=== PATIENT | female | born 1980 | race Caucasian/White ===

== ENCOUNTER 2020-01-07 15:41 | Emergency (ER) | payer OTHER ==
[~2020-01-07] VITALS: Ht 157.5 cm; Wt 104.3 kg
== END 2020-01-07 21:59 | disposition home or self-care (01) ==
LOC: ER 15:41
DX: M25.561 Pain in right knee (principal)

== ENCOUNTER 2020-11-06 12:16 | Emergency (ER) | payer OTHER ==
[~2020-11-06] VITALS: Ht 157.5 cm; Wt 108.4 kg
[2020-11-06] MEDS ORDERED: ATIVAN0.5 M1 (12:49)
[2020-11-06] MEDS ORDERED: PAXIL20 MG (12:49)
== END 2020-11-06 16:18 | disposition left against medical advice (07) ==
LOC: ER 12:16
DX: B34.9 Viral infection, unspecified (principal); G44.209 Tension-type headache, unspecified, not intractable; Z20.828 Contact with and (suspected) exposure to other viral communicable diseases

== ENCOUNTER 2020-11-19 19:33 | Emergency (ER) | payer OTHER ==
[~2020-11-19] VITALS: Ht 157.5 cm; Wt 131.1 kg
[~2020-11-19 19:33] MED LIST: ATIVAN0.5 M1; PAXIL20 MG
[2020-11-19] MEDS ORDERED: BUDESONIDE0.5 MG/2 M (19:43)
[2020-11-19] MEDS ORDERED: ALBUTEROL2.5 MG/3 M IH (19:44)
[2020-11-19] MEDS ORDERED: PROAIR HFA8.5 GM IH (20:00)
== END 2020-11-19 20:22 | disposition home or self-care (01) ==
LOC: ER 19:33
DX: J45.909 Unspecified asthma, uncomplicated (principal); U07.1 COVID-19

== ENCOUNTER 2020-11-25 17:22 | Emergency (ER) | payer OTHER ==
[~2020-11-25] VITALS: Ht 157.5 cm; Wt 131.1 kg
[~2020-11-25 17:22] MED LIST changes: +ALBUTEROL2.5 MG/3 M IH; +BUDESONIDE0.5 MG/2 M; +PROAIR HFA8.5 GM IH
== END 2020-11-25 21:50 | disposition home or self-care (01) ==
LOC: ER 17:22
DX: R42 Dizziness and giddiness (principal)

== ENCOUNTER → 2020-12-02 | Outpatient (CLI) | payer OTHER | END | disposition home or self-care (01) | LOC: MRI 13:15 | DX: G93.89 Other specified disorders of brain (principal); R42 Dizziness and giddiness | CPT/HCPCS: 70551 ==

== ENCOUNTER 2021-02-04 07:36 | Outpatient (CLI) | payer OTHER | END 2021-02-04 07:42 | disposition home or self-care (01) | LOC: MAMO-SONO 07:36 | DX: Z12.31 Encounter for screening mammogram for malignant neoplasm of breast (principal); N64.4 Mastodynia ==

== ENCOUNTER 2021-04-09 15:24 | Emergency (ER) | payer OTHER ==
[~2021-04-09] VITALS: Ht 157.5 cm; Wt 11.8 kg
[2021-04-09] MEDS ORDERED: TRAMADOL HCL100 M1 (15:42)
[2021-04-09] MEDS ORDERED: INTESTINEX680 M1 PO (18:46)
== END 2021-04-09 19:10 | disposition home or self-care (01) ==
LOC: ER 15:24
DX: R19.7 Diarrhea, unspecified (principal); Z11.52 Encounter for screening for COVID-19

== ENCOUNTER 2021-05-14 19:28 | Emergency (ER) | payer OTHER ==
[~2021-05-14] VITALS: Ht 160 cm; Wt 125.2 kg
[~2021-05-14 19:28] MED LIST changes: +INTESTINEX680 M1 PO; +TRAMADOL HCL100 M1
== END 2021-05-14 22:25 | disposition home or self-care (01) ==
LOC: ER 19:28
DX: M54.5 Low back pain (principal)

== ENCOUNTER → 2021-06-22 11:45 | Outpatient (CLI) | payer OTHER | END | disposition home or self-care (01) | LOC: RAD 11:45 | PROVIDERS: ATTEND General Practice | DX: M77.32 Calcaneal spur, left foot (principal); M77.31 Calcaneal spur, right foot; M79.671 Pain in right foot ==

== ENCOUNTER 2021-09-07 21:19 | Emergency (ER) | payer OTHER ==
[~2021-09-07] VITALS: Ht 160 cm; Wt 102.1 kg
[2021-09-08] MEDS ORDERED: ZYRTEC10 MG PO (01:25)
[2021-09-08] MEDS ORDERED: AZITHROMYCIN500 MG PO (01:25)
[2021-09-08] MEDS ORDERED: ACETAMINOPHEN650 M2 PO (01:25)
[2021-09-08] MEDS ORDERED: MUCINEX DM ER1 EAC1 PO (01:25)
[2021-09-08] MEDS ORDERED: LEVALBUTER1.25 MG/3 IH (01:25)
== END 2021-09-08 01:52 | disposition home or self-care (01) ==
LOC: ER 21:19
DX: J40 Bronchitis, not specified as acute or chronic (principal)

== ENCOUNTER 2021-09-15 17:08 | Emergency (ER) | payer OTHER ==
[~2021-09-15] VITALS: Ht 157.5 cm; Wt 113.4 kg
[~2021-09-15 17:08] MED LIST changes: +ACETAMINOPHEN650 M2 PO; +AZITHROMYCIN500 MG PO; +LEVALBUTER1.25 MG/3 IH; +MUCINEX DM ER1 EAC1 PO; +ZYRTEC10 MG PO
[2021-09-15] MEDS ORDERED: LEVOFLOXACIN500 MG PO (22:02)
[2021-09-15] MEDS ORDERED: ALBUTEROL0.63 MG/3 IH (22:02)
[2021-09-15] MEDS ORDERED: BENZONATATE200 M1 PO (22:02)
== END 2021-09-15 22:14 | disposition home or self-care (01) ==
LOC: ER 17:08
DX: J20.9 Acute bronchitis, unspecified (principal); J45.998 Other asthma; Z03.818 Encounter for observation for suspected exposure to other biological agents ruled out; E16.1 Other hypoglycemia

== ENCOUNTER 2021-10-17 14:38 | Emergency (ER) | payer OTHER ==
[~2021-10-17] VITALS: Ht 157.5 cm; Wt 104.3 kg
[~2021-10-17 14:38] MED LIST changes: +ALBUTEROL0.63 MG/3 IH; +BENZONATATE200 M1 PO; +LEVOFLOXACIN500 MG PO
== END 2021-10-17 20:18 | disposition home or self-care (01) ==
LOC: ER 14:38
DX: S80.01XA Contusion of right knee, initial encounter (principal); S30.0XXA Contusion of lower back and pelvis, initial encounter; W19.XXXA Unspecified fall, initial encounter; Y93.89 Activity, other specified; Y92.89 Other specified places as the place of occurrence of the external cause; Y99.8 Other external cause status; Z03.818 Encounter for observation for suspected exposure to other biological agents ruled out

== ENCOUNTER → 2021-11-10 | Emergency (ER) | payer OTHER ==
[~2021-11-10] VITALS: Ht 157.5 cm; Wt 115.7 kg
[~2021-11-10] MED LIST changes: +ATIVAN1 M1; +IPRAT-ALBUT 0.5-3 ML IH; +RESTORIL; +WELLBUTRIN SR150 MG
== END | disposition left against medical advice (07) ==
LOC: ER 23:39
DX: Z53.20 Procedure and treatment not carried out because of patient's decision for unspecified reasons (principal)

== ENCOUNTER 2021-11-11 19:27 | Emergency (ER) | payer OTHER ==
[~2021-11-11] VITALS: Ht 154.9 cm; Wt 97.5 kg
[~2021-11-11 19:27] MED LIST changes: -IPRAT-ALBUT 0.5-3 ML IH
[2021-11-11] MEDS ORDERED: IPRAT-ALBUT 0.5-3 ML IH (21:47)
== END 2021-11-11 22:16 | disposition home or self-care (01) ==
LOC: ER 19:27
DX: J45.998 Other asthma (principal); Z20.822 Contact with and (suspected) exposure to COVID-19

== ENCOUNTER 2022-05-18 08:39 | Outpatient (CLI) | payer OTHER ==
[~2022-05-18 08:39] MED LIST changes: +IPRAT-ALBUT 0.5-3 ML IH
== END 2022-05-18 08:43 | disposition home or self-care (01) ==
LOC: MAMO-SONO 08:39
PROVIDERS: ATTEND General Practice
DX: N63.0 Unspecified lump in unspecified breast (principal)

== ENCOUNTER 2023-01-21 12:35 | Emergency (ER) | payer OTHER ==
[~2023-01-21] VITALS: Ht 160 cm; Wt 120.7 kg
== END 2023-01-21 15:37 | disposition home or self-care (01) ==
LOC: ER 12:35
DX: S93.402A Sprain of unspecified ligament of left ankle, initial encounter (principal); X58.XXXA Exposure to other specified factors, initial encounter; Y93.K1 Activity, walking an animal; Y92.89 Other specified places as the place of occurrence of the external cause; Y99.9 Unspecified external cause status

== ENCOUNTER → 2023-02-23 | Outpatient (CLI) | payer OTHER | END | disposition home or self-care (01) | LOC: MAMO-SONO 08:19 | DX: Z12.31 Encounter for screening mammogram for malignant neoplasm of breast (principal); R10.2 Pelvic and perineal pain ==

== ENCOUNTER 2023-03-17 14:37 | Emergency (ER) | payer OTHER ==
[~2023-03-17] VITALS: Ht 162.6 cm; Wt 120.2 kg
== END 2023-03-17 20:18 | disposition home or self-care (01) ==
LOC: ER 14:37
DX: R06.9 Unspecified abnormalities of breathing (principal); Z20.822 Contact with and (suspected) exposure to COVID-19; Z88.8 Allergy status to other drugs, medicaments and biological substances

== ENCOUNTER 2023-04-18 21:45 | Emergency (ER) | payer OTHER ==
[~2023-04-18] VITALS: Ht 157.5 cm; Wt 120.7 kg
[2023-04-18] MEDS ORDERED: LEVALBUTER0.31 MG/3 (22:39)
== END 2023-04-19 01:58 | disposition home or self-care (01) ==
LOC: ER 21:45
DX: J45.909 Unspecified asthma, uncomplicated (principal); Z20.822 Contact with and (suspected) exposure to COVID-19; Z88.8 Allergy status to other drugs, medicaments and biological substances

== ENCOUNTER 2023-07-17 12:43 | Emergency (ER) | payer OTHER ==
[~2023-07-17] VITALS: Ht 157.5 cm; Wt 113.4 kg
[~2023-07-17 12:43] MED LIST changes: +LEVALBUTER0.31 MG/3
[2023-07-17] MEDS ORDERED: BUSPIRONE HCL7.5 MG PO (13:38)
== END 2023-07-17 19:28 | disposition home or self-care (01) ==
LOC: ER 12:43
PROVIDERS: Emergency Medicine
DX: J45.901 Unspecified asthma with (acute) exacerbation (principal); Z20.822 Contact with and (suspected) exposure to COVID-19

== ENCOUNTER 2023-08-29 16:40 | Emergency (ER) | payer OTHER ==
[~2023-08-29] VITALS: Ht 157.5 cm; Wt 111.6 kg
[~2023-08-29 16:40] MED LIST changes: +BUSPIRONE HCL7.5 MG PO
[2023-08-29] MEDS ORDERED: AMOX-CLAV 875-1 EAC1 PO (17:58)
[2023-08-29] MEDS ORDERED: DICLOFENAC SODI75 MG PO (17:58)
== END 2023-08-29 18:08 | disposition home or self-care (01) ==
LOC: ER 16:40
DX: L03.116 Cellulitis of left lower limb (principal); Z88.8 Allergy status to other drugs, medicaments and biological substances

== ENCOUNTER 2024-03-07 07:32 | Outpatient (CLI) | payer OTHER ==
[~2024-03-07 07:32] MED LIST changes: +AMOX-CLAV 875-1 EAC1 PO; +DICLOFENAC SODI75 MG PO
== END 2024-03-07 07:51 | disposition home or self-care (01) ==
LOC: MAMO-SONO 07:32
DX: M25.561 Pain in right knee (principal); M25.562 Pain in left knee; G89.29 Other chronic pain; Z12.31 Encounter for screening mammogram for malignant neoplasm of breast

== ENCOUNTER 2024-07-02 12:30 | Emergency (ER) | payer OTHER ==
[~2024-07-02] VITALS: Ht 157.5 cm; Wt 90.7 kg
[2024-07-02] MEDS ORDERED: KETOROLAC TROMETHAMINE 60 MG VIAL IM ONE ×2 (14:30→15:03)
[2024-07-02] MEDS ORDERED: KETO10TA2 PO (15:36)
== END 2024-07-02 16:03 | disposition home or self-care (01) ==
LOC: ER 12:30
DX: S40.011A Contusion of right shoulder, initial encounter (principal); S80.02XA Contusion of left knee, initial encounter; W18.39XA Other fall on same level, initial encounter; Y93.89 Activity, other specified; Y92.018 Other place in single-family (private) house as the place of occurrence of the external cause; Y99.9 Unspecified external cause status; Z88.8 Allergy status to other drugs, medicaments and biological substances

== ENCOUNTER 2024-07-13 07:50 | Outpatient (CLI) | payer OTHER ==
[~2024-07-13 07:50] MED LIST changes: +KETO10TA2 PO
== END 2024-07-13 08:02 | disposition home or self-care (01) ==
LOC: SONOGRAMA 07:50
DX: N92.0 Excessive and frequent menstruation with regular cycle (principal); R10.2 Pelvic and perineal pain; N63.11 Unspecified lump in the right breast, upper outer quadrant

== ENCOUNTER 2025-03-15 14:15 | Emergency (ER) | payer OTHER ==
[~2025-03-15] VITALS: Ht 157.5 cm; Wt 107.5 kg
[2025-03-15] MEDS ORDERED: IPRATROPIUM BROMIDE 0.5 MG/2.5 ML AMPUL.NEB IH ONE (15:40)
[2025-03-15] MEDS ORDERED: GUAIFENESIN/DEXTROMETHORPHAN 100MG/10ML BLIST.PACK PO ONE (15:40)
[2025-03-15] MEDS ORDERED: IPRATROPIUM BROMIDE 0.5 MG/2.5 ML AMPUL.NEB IH SCH (15:45)
[2025-03-15] MEDS ORDERED: GUAIFENESIN 200 MG/10 ML BLIST.PACK PO ONE (15:45)
[2025-03-15 16:00] LABS: HEMATOCRIT 35.9 % (36.0-45.00); MEAN CORPUSCULAR HEMOGLOBIN 27.7 pg (27.00-32.0); MEAN CORPUSCULAR HGB CONC 33.4 g/dl (32.0-36.0); PLATELET COUNT 365 K/uL (150-450); RED BLOOD COUNT 4.32 M/uL (4.00-6.00); RED CELL DISTRIBUTION WIDTH 14.5 % (11.5-14.5)
[2025-03-15 16:42] LABS: COVID-19 AG NEGATIVE (NEGATIVE)
[2025-03-15 16:43] LABS: INFLUENZA A AG NEGATIVE (NEGATIVE)
== END 2025-03-15 17:02 | disposition home or self-care (01) ==
LOC: ER 14:15
PROVIDERS: General Practice
DX: R05.3 Chronic cough (principal); Z20.822 Contact with and (suspected) exposure to COVID-19; Z88.8 Allergy status to other drugs, medicaments and biological substances; Z87.09 Personal history of other diseases of the respiratory system

== ENCOUNTER 2025-03-28 16:21 | Outpatient (CLI) | payer OTHER | END 2025-03-28 16:26 | disposition home or self-care (01) | LOC: MAMO-SONO 16:21 | DX: Z12.31 Encounter for screening mammogram for malignant neoplasm of breast (principal) ==

== ENCOUNTER 2025-10-03 15:57 | Emergency (ER) | payer OTHER ==
[~2025-10-03] VITALS: Ht 157.5 cm; Wt 104.3 kg
[2025-10-03] MEDS ORDERED: KETOROLAC TROMETHAMINE 30 MG VIAL IV ONE (17:00)
[2025-10-03] MEDS ORDERED: KETOROLAC TROMETHAMINE 30 MG VIAL ONE (17:25)
[2025-10-03 18:15] LABS: URINE APPEARANCE Cloudy; URINE BILIRRUBIN Negative (NEGATIVE); URINE BLOOD Negative; URINE COLOR Dark Yellow; URINE GLUCOSE Negative (NEGATIVE); URINE KETONE Trace (NEGATIVE); URINE LEUKOCYTE Moderate; URINE NITRATE Negative; URINE PROTEIN Trace (NEGATIVE); URINE UROBILINOGEN 1.0 E.U./dl
[2025-10-03 18:16] LABS: BASO % 0.8 % (0.1-1.2); EOS # 0.04 (0.04-0.54); EOS % 0.6 % (0.7-7.0); LYMPH # 3.66 (1.18-3.74); LYMPH % 58.3 % (19.3-53.1); MEAN PLATELET VOLUME 9.10 fl (9.4-12.4); MONO # 0.34 (0.24-0.82); MONO % 5.4 % (4.7-12.5); NEUT # 2.17 (1.56-6.13); NEUT % 34.6 % (34.0-71.1); RED CELL DISTRIBUTION WIDTH 15.1 % (11.6-14.4)
[2025-10-03 18:19] LABS: URINE BACTERIA 2354.3 uL (0.0-1933); URINE EPITHELIAL CELLS 29.0 uL (0.0-38.8); URINE RBC 4.3 uL (0.0-20.8); URINE WBC 567.6 uL (0.0-23.2)
[2025-10-03 18:23] LABS: URINE CAST 0.14 uL (0.0-1.40)
[2025-10-03 18:32] LABS: ALT/SGPT 124.0 U/L (12-78); AST/SGOT 96.0 U/L (15-37); BILIRUBIN TOTAL 0.44 mg/dL (0.3-1.2); BUN CREA RATIO 16.0 (7.0-25.0); CREATININE SERUM 0.75 mg/dL (0.55-1.02); GFR 83.95; GLOBULINA 4.5 G/DL (2.4-3.5); GLUCOSE FASTING 165.0 mg/dL (65-100); OSMOLALITY SERUM 287.0 MOSM/KG (275-295)
[2025-10-03] MEDS ORDERED: MACROBID 100 M100 MG PO (20:40)
[2025-10-03] MEDS ORDERED: DICLOFENAC SODI50 MG PO (20:40)
== END 2025-10-03 21:30 | disposition home or self-care (01) ==
LOC: ER 15:58
PROVIDERS: General Practice
DX: N39.0 Urinary tract infection, site not specified (principal); R10.9 Unspecified abdominal pain; R50.9 Fever, unspecified; Z88.8 Allergy status to other drugs, medicaments and biological substances